=== PATIENT | male | born 1970 ===

== ENCOUNTER 2022-03-01 10:52 | Day surgery (SDC) | payer OTHER ==
[~2022-03-01] VITALS: Ht 180.3 cm; Wt 59.0 kg
[~2022-03-01 10:52] MED LIST: METFORMIN HCL1000 M2 PO; PRILOSEC40 MG
== END 2022-03-01 17:35 | disposition home or self-care (01) ==
LOC: CIR.AMB 10:52
PROVIDERS: ATTEND Orthopaedic Surgery
DX: M75.122 Complete rotator cuff tear or rupture of left shoulder, not specified as traumatic (principal); M94.211 Chondromalacia, right shoulder; M65.811 Other synovitis and tenosynovitis, right shoulder; M75.01 Adhesive capsulitis of right shoulder; T84.84XA Pain due to internal orthopedic prosthetic devices, implants and grafts, initial encounter; Z99.89 Dependence on other enabling machines and devices; G47.33 Obstructive sleep apnea (adult) (pediatric); E11.9 Type 2 diabetes mellitus without complications; K21.9 Gastro-esophageal reflux disease without esophagitis; Z79.84 Long term (current) use of oral hypoglycemic drugs; Z20.822 Contact with and (suspected) exposure to COVID-19